=== PATIENT | male | born 1960 | race Caucasian/White ===

== ENCOUNTER 2017-07-10 08:27 | Observation (INO) | payer BC ==
[2017-07-10] MEDS ORDERED: ECOTRIN PO NR (09:11)
[2017-07-10 09:36] LABS: Basophils % (Auto) 0.5 % (0.0-1.8); Eosinophils # (Auto) 0.1 K/mm3 (0.0-0.4); Hematocrit 40.6 % (35.5-45.6); Hemoglobin 14.2 gm/dl (11.8-15.2); Lymphocytes # (Auto) 1.7 K/mm3 (1.2-5.4); Lymphocytes % (Auto) 29.1 % (13.4-35.0); Mean Corpuscular HGB Conc 35 % (32-34); Mean Corpuscular Hemoglobin 29 pg (28-32); Mean Corpuscular Volume 84 fl (84-94); Monocytes # (Auto) 0.6 K/mm3 (0.0-0.8); Monocytes % (Auto) 9.6 % (0.0-7.3); Platelet Count 216 K/mm3 (140-440); Red Blood Count 4.84 M/mm3 (3.65-5.03)
[2017-07-10 09:47] LABS: BUN/Creatinine Ratio 25; Blood Urea Nitrogen 20 mg/dL (9-20); Calcium 8.9 mg/dL (8.4-10.2); Hemolysis Index 2
[2017-07-10 09:59] LABS: INR 0.95 (0.87-1.13)
[2017-07-10] MEDS ORDERED: NACL 0.9% 500 ML 500 ML IV SCH (10:00)
[2017-07-10] MEDS ORDERED: HEPARIN/NS 5000 UNIT/500ML(CATH LAB) 1,000 ML IR ONE (13:21)
[2017-07-10] MEDS ORDERED: HEPARIN 10,000 UNITS/10 ML ONE (13:21)
[2017-07-10] MEDS ORDERED: VERSED ONE (13:22)
[2017-07-10] MEDS ORDERED: CALAN ONE (13:22)
[2017-07-10] MEDS ORDERED: XYLOCAINE 2% INFILTRATI ONE (13:22)
[2017-07-10] MEDS ORDERED: NITROGLYCERIN SYRINGE 3 ML ONE ×2 (13:22→14:37)
[2017-07-10] MEDS ORDERED: SUBLIMAZE ONE (13:22)
[2017-07-10] MEDS ORDERED: PLAVIX ONE (14:51)
[2017-07-10] MEDS ORDERED: ALUM-MAG HYDROX-SIMETH 200-200-20MG/5ML ONE (14:51)
[2017-07-10] MEDS ORDERED: ZOFRAN IV PRN (15:20)
[2017-07-10] MEDS ORDERED: ULTRAM PO PRN (15:20)
[2017-07-10] MEDS ORDERED: AMBIEN PO PRN (15:20)
--- NOTE | 2017-07-10 15:20 | Event Note ---
Date: 07/10/17 Successful angioplasty and stent completed, excellent results, no complications. Proximal LAD 75% to 0. Diagonal branch 99% to 0. Admit 23 observation post PCI. Discharge tomorrow.
[2017-07-10] MEDS ORDERED: NACL 0.9% 1000 ML 1,000 ML IV SCH (16:00)
--- NOTE | 2017-07-10 16:02 | Cardiac Catherization Report ---
CORONARY ANGIOPLASTY REPORT REASON FOR PROCEDURE: The patient is a 56-year-old man with recurrent, intermittent angina pectoris. A cardiac catheterization was done at an outside hospital. We will review the angiograms. There was an eccentric, 75-80% stenosis of the proximal LAD. Following this, a [id number] mid diagonal branch of the LAD contained a 95-99% stenosis of its proximal segment. Based on the angiographic findings and the patient's persistent angina pectoris, recommendation was made for coronary intervention. DESCRIPTION OF PROCEDURE: The patient was prepped and draped in a sterile fashion after informed consent. The right femoral artery was entered using Seldinger technique followed by placement of a 6-[place] sheath. We selected a number 3.5 XB guiding catheter and advanced to the left coronary ostium. Preintervention angiograms were taken. A 0.014 inch Buckle Sorter 50 guidewire was directed through the proximal LAD, into the diagonal branch. We first treated the diagonal branch lesion. After wire placement, a 2.5 mm balloon was used to predilate the lesion in the diagonal branch. Following that, we deployed a 2.5 x 12 mm drug-eluting stent, expanding the stent to optimal pressures. Following this, angiograms revealed an excellent angiographic result at the diagonal branch, 0 residual stenosis and YOBANI 3 flow. We then turned our attention to the proximal LAD. The guidewire was retrieved from the diagonal and advanced to the distal LAD. Following this, in a primary stenting maneuver, we deployed a 3.0 x 12 mm Resolute drug-eluting stent to the proximal LAD stenosis. This stent was also inflated to optimal pressures. Following stenting, there was an excellent angiographic result, 0 residual stenosis and YOBANI 3 flow both in the LAD and diagonal branch. The procedure was well tolerated by the patient and there were no complications. CONCLUSION: 1. Successful angioplasty and stenting of the proximal LAD and the proximal segment of the mid diagonal branch. 2. A 2.25 x 12 mm drug-eluting stent was deployed to the diagonal branch. 3. A 3.0 x 12 mm drug-eluting stent was deployed to the proximal LAD. JOB# [id number] CA/NTS
[2017-07-10] MEDS: IMDUR PO SCH (17:51)
[2017-07-11 07:24] LABS: Creatine Kinase MB 5.1 ng/mL (0.0-4.0)
[2017-07-11 07:26] LABS: Basophils % (Auto) 0.4 % (0.0-1.8); Eosinophils # (Auto) 0.1 K/mm3 (0.0-0.4); Eosinophils % (Auto) 1.1 % (0.0-4.3); Hemoglobin 14.4 gm/dl (11.8-15.2); Lymphocytes # (Auto) 1.3 K/mm3 (1.2-5.4); Lymphocytes % (Auto) 19.4 % (13.4-35.0); Mean Corpuscular HGB Conc 34 % (32-34); Mean Corpuscular Hemoglobin 29 pg (28-32); Mean Corpuscular Volume 85 fl (84-94); Monocytes # (Auto) 0.6 K/mm3 (0.0-0.8); Monocytes % (Auto) 8.5 % (0.0-7.3); Platelet Count 197 K/mm3 (140-440); Red Blood Count 4.95 M/mm3 (3.65-5.03); Red Cell Distribution Width 14.2 % (13.2-15.2)
[2017-07-11 07:29] LABS: BUN/Creatinine Ratio 20; Blood Urea Nitrogen 16 mg/dL (9-20); Calcium 8.9 mg/dL (8.4-10.2); Hemolysis Index 13
[2017-07-11 07:40] LABS: Chol/HDL Ratio 3.23 %; HDL Cholesterol 43 mg/dL (40-59); LDL Cholesterol,Direct 61 mg/dL (50-130)
--- NOTE | 2017-07-11 09:06 | XRay Report ---
AP CHEST: HISTORY: Post PCI AP view of the chest demonstrates a normal mediastinal and cardiac contour with clear lungs and normal bony and soft tissue structures. IMPRESSION: Unremarkable AP chest.
[2017-07-11] MEDS ORDERED: HALFPRIN EC PO SCH (10:00)
[2017-07-11] MEDS ORDERED: TOPROL XL PO SCH (10:00)
[2017-07-11] MEDS ORDERED: HCTZ PO SCH (10:00)
[2017-07-11] MEDS: IMDUR PO SCH (10:37)
[2017-07-11] MEDS: PLAVIX PO SCH ×2 (10:38→10:48)
--- NOTE | 2017-07-11 10:50 | Short Stay Summary ---
Short Stay Documentation Date of service: 07/11/17 - History H&P: obtained from office - Allergies and Medications Current Medications: Allergies No Known Allergies Allergy (Verified 07/10/17 09:11) Home Medications Medication Instructions Recorded Confirmed Last Taken Type Aspirin EC [Aspirin Enteric Coated 81 mg PO DAILY 07/10/17 07/10/17 07/09/17 History TAB] 81mg AtorvaSTATin [Lipitor] 40 mg PO QHS 07/10/17 07/10/17 07/09/17 History 40mg Clopidogrel Bisulfate [Clopidogrel] 75 mg PO DAILY 07/10/17 07/10/17 07/10/17 12 :47 History 75mg Ergocalciferol [Vitamin D2] 50,000 units PO DAILY 07/10/17 07/10/17 07/09/17 History [id number] Hydrochlorothiazide [HCTZ] 25 mg PO DAILY 07/10/17 07/10/17 07/09/17 History 25mg Nitroglycerin [Nitrostat] 0.4 mg SL DAILY PRN 07/10/17 07/10/17 07/09/17 History 0.4mg Active Medications Aspirin (Halfprin Ec) 81 mg PO DAILY REPLACED BY [facility] Atorvastatin Calcium (Lipitor) 40 mg PO QHS REPLACED BY [facility] Last Admin: 07/10/17 22:04 Dose: 40 mg Clopidogrel Bisulfate (Plavix) 75 mg PO DAILY REPLACED BY [facility] Last Admin: 07/11/17 10:48 Dose: Not Given Hydrochlorothiazide (Hctz) 25 mg PO DAILY REPLACED BY [facility] Last Admin: 07/11/17 10:39 Dose: 25 mg Isosorbide Mononitrate (Imdur) 30 mg PO QDAY REPLACED BY [facility] Last Admin: 07/11/17 10:37 Dose: 30 mg Metoprolol Succinate (Toprol Xl) 25 mg PO QDAY REPLACED BY [facility] Last Admin: 07/11/17 10:45 Dose: Not Given Ondansetron HCl (Zofran) 4 mg IV Q8H PRN PRN Reason: N/V unrelieved by Reglan Tramadol HCl (Ultram) 50 mg PO Q4H PRN PRN Reason: Pain, Mild (1-3) Last Admin: 07/11/17 05:21 Dose: 50 mg Zolpidem Tartrate (Ambien) 5 mg PO QHS PRN PRN Reason: Sleep - Physical exam General appearance: no acute distress HEENT: PERRLA Lungs: Clear to auscultation Heart: Normal S1, Normal S2 - Brief post op/procedure progress note Procedure: Successful angioplasty and stent completed, excellent results, no complications. Proximal LAD 75% to 0. Diagonal branch 99% to 0. Condition: stable - Hospital course Hospital course: Stable overnight observation. Medical therapy for coronary artery disease to include plavix, aspirin, long acting nitrates and statin therapy. Beta blockers held due to sinus bradycardia, rate 52. Patient advised to follow up with his primary professor of communication within 1 week. - Disposition Condition at discharge: Good Disposition: [id number] TO HOME OR SELFCARE Short Stay Discharge Plan Activity: advance as tolerated Weight Bearing Status: Full Weight Bearing Diet: low fat, low cholesterol, low salt Special Instructions: no heavy lifting (x 72hrs post cardiac cath) Follow up with: KULWANT ARRIETA MD [Primary Care Provider] - 7 Days AILEEN CHAHAL MD [Staff Physician] - 7 Days Forms: CardCat PCI D/C Instructions Prescriptions: ISOSORBIDE MONOnitrate [Imdur ER] 30 mg PO QDAY #30 tablet
[2017-07-11 13:35] VITALS: BP 108/65
== END 2017-07-11 14:43 | disposition home or self-care (01) ==
LOC: CATHLABREC 08:27 → 4A 15:20
PROVIDERS: ADMIT Internal Medicine Cardiovascular Disease; ATTEND Internal Medicine Cardiovascular Disease
DX: I25.118 Atherosclerotic heart disease of native coronary artery with other forms of angina pectoris (principal); Z98.61 Coronary angioplasty status; Z79.899 Other long term (current) drug therapy
CPT/HCPCS: 36415; 71045; 80048; 80061; 82550; 82553; 82962; 84484; 85025; 85347; 85610; 85730; 93005; 93010; A9270; C1725; C1760; C1769; C1874; C1887; C1894; C9600; C9601; G0378; J1644; J2250; J3010; J7040; 92928; 92929; Q9967